=== PATIENT | male | born 1995 | race Caucasian/White ===

== ENCOUNTER 2019-01-14 | Emergency (ER) | payer SELFPAY ==
[2019-01-14] MEDS ORDERED: predniSONE 20 MG TAB ONE (00:20)
== END 2019-01-14 00:25 | disposition home or self-care (01) ==
LOC: NAV ERS
DX: L23.7 Allergic contact dermatitis due to plants, except food (principal); J45.909 Unspecified asthma, uncomplicated; F17.220 Nicotine dependence, chewing tobacco, uncomplicated
CPT/HCPCS: 99282; J7512